=== PATIENT | female | born 1990 | race Caucasian/White ===

== ENCOUNTER 2018-09-16 14:50 | Outpatient (CLI) | payer OTHER | END 2018-09-17 14:46 | disposition home or self-care (01) | LOC: OBS/DEL 14:50 | DX: O26.892 Other specified pregnancy related conditions, second trimester (principal); R10.84 Generalized abdominal pain; Z34.82 Encounter for supervision of other normal pregnancy, second trimester ==

== ENCOUNTER 2018-12-14 18:47 | Inpatient (IN) | payer OTHER ==
[~2018-12-14] VITALS: Ht 162.6 cm; Wt 62.6 kg
[2018-12-15] MEDS ORDERED: PRENATAL TABLE1 EACH PO (12:26)
== END 2018-12-19 11:52 | disposition home or self-care (01) | DRG 833 ==
LOC: ER 18:47 → LDR 12-15 11:53 → OB/GYN 12-15 11:53
PROVIDERS: ADMIT Obstetrics & Gynecology
PROC: BY4FZZZ Ultrasonography of Third Trimester, Single Fetus (ICD-10-PCS; principal; 2018-12-15)
DX: O99.613 Diseases of the digestive system complicating pregnancy, third trimester (principal); K52.89 Other specified noninfective gastroenteritis and colitis

== ENCOUNTER 2019-01-12 23:30 | Outpatient (CLI) | payer OTHER ==
[~2019-01-12 23:30] MED LIST: PRENATAL TABLE1 EACH PO
[2019-01-13] MEDS ORDERED: KEFLEX500 MG PO (14:25)
== END 2019-01-13 17:23 | disposition home or self-care (01) ==
LOC: OBS/DEL 23:30
DX: O46.8X3 Other antepartum hemorrhage, third trimester (principal); Z34.83 Encounter for supervision of other normal pregnancy, third trimester

== ENCOUNTER 2019-02-09 06:27 | Inpatient (IN) | payer OTHER ==
[~2019-02-09] VITALS: Ht 162.6 cm; Wt 2.3 kg
[~2019-02-09 06:27] MED LIST changes: +KEFLEX500 MG PO
[2019-02-09] MEDS ORDERED: VALTREX1000 MG PO (06:59)
== END 2019-02-12 14:00 | disposition home or self-care (01) | DRG 784 ==
LOC: LDR 06:27 → OB/GYN 06:27 → O/R 09:48 → OB/GYN 11:04
PROVIDERS: ADMIT Obstetrics & Gynecology
PROC: 0UL70ZZ Occlusion of Bilateral Fallopian Tubes, Open Approach (ICD-10-PCS; 2019-02-09)
PROC: 4A1HXCZ Monitoring of Products of Conception, Cardiac Rate, External Approach (ICD-10-PCS; 2019-02-09)
PROC: 10D00Z1 Extraction of Products of Conception, Low, Open Approach (ICD-10-PCS; principal; 2019-02-09 08:00)
DX: O82 Encounter for cesarean delivery without indication (principal); O98.52 Other viral diseases complicating childbirth; O63.0 Prolonged first stage (of labor); Z3A.38 38 weeks gestation of pregnancy; Z37.0 Single live birth; Z30.2 Encounter for sterilization

== ENCOUNTER 2021-10-28 20:03 | Emergency (ER) | payer OTHER ==
[~2021-10-28] VITALS: Ht 162.6 cm; Wt 63.5 kg
[~2021-10-28 20:03] MED LIST changes: +VALTREX1000 MG PO
== END 2021-10-28 23:37 | disposition home or self-care (01) ==
LOC: ER 20:03
DX: R10.32 Left lower quadrant pain (principal)